=== PATIENT | male | born 1935 | race Two or more races ===

== ENCOUNTER 2023-04-01 15:17 | Emergency (ER) | payer OTHER ==
[~2023-04-01] VITALS: Ht 182.9 cm; Wt 93.4 kg
[2023-04-01] MEDS ORDERED: ZESTRIL20 MG PO (15:35)
[2023-04-01] MEDS ORDERED: PROTONIX IV40 MG IV (15:35)
[2023-04-01] MEDS ORDERED: ZOCOR20 MG PO (15:35)
== END 2023-04-01 18:57 | disposition home or self-care (01) ==
LOC: ER 15:18
DX: S09.8XXA Other specified injuries of head, initial encounter (principal); W18.39XA Other fall on same level, initial encounter; Y93.89 Activity, other specified; Y92.018 Other place in single-family (private) house as the place of occurrence of the external cause

== ENCOUNTER 2023-04-21 10:22 | Emergency (ER) | payer OTHER ==
[~2023-04-21] VITALS: Ht 182.9 cm; Wt 90.7 kg
[~2023-04-21 10:22] MED LIST: PROTONIX IV40 MG IV; ZESTRIL20 MG PO; ZOCOR20 MG PO
[2023-04-21 11:11] LABS: HEMATOCRIT 42.9 % (39.0-48.0); MEAN CELL VOLUME 96.9 fL (80.0-100.00); MEAN CORPUSCULAR HEMOGLOBIN 33.8 pg (27.00-32.0); MEAN CORPUSCULAR HGB CONC 34.9 g/dl (32.0-36.0); PLATELET COUNT 156 K/uL (150-450); RED BLOOD COUNT 4.43 M/uL (4.00-6.00); RED CELL DISTRIBUTION WIDTH 13.3 % (11.5-14.5)
[2023-04-21] MEDS ORDERED: PAXLOVID 300-11 EAC1 PO (14:09)
== END 2023-04-21 14:18 | disposition home or self-care (01) ==
LOC: ER 10:23
PROVIDERS: General Practice
DX: U07.1 COVID-19 (principal); I10 Essential (primary) hypertension